=== PATIENT | male | born 1975 | race African-American/Black ===

== ENCOUNTER 2016-10-03 06:28 | Emergency (ER) | payer OTHER ==
[~2016-10-03] VITALS: Ht 188 cm; Wt 106.6 kg
[~2016-10-03 06:28] MED LIST: ACULAR5 ML LEFT EYE; AMOXICILLIN500 MG ORAL; AZITHROMYCIN250 MG ORAL; CIPROFLOXACIN500 M2 ORAL; DILANTIN100 MG ORAL; DOXYCYCLINE HY100 M2 PO; GUAIFENESI100 MG/5 M ORAL; IBUPROFEN600 MG ORAL; IBUPROFEN800 MG ORAL; KEFLEX500 MG ORAL; LORATADINE10 M1 PO; METOPROLOL SUCC25 MG ORAL; PEPCID20 MG ORAL; PREDNISONE20 MG ORAL; PRILOSEC20 MG ORAL; PROMETHAZINE-D118 ML ORAL; TESSALON PERLE100 MG ORAL
[2016-10-03 06:40] VITALS: BP 122/85
[2016-10-03] MEDS ORDERED: Albuterol ud Inhalation HHN ONE (07:00)
[2016-10-03 07:14] LABS: BASOPHILS % (AUTO) 1.7 % (0.0-2.0); EOSINOPHILS % (AUTO) 4.7 % (0.0-3.0); LYMPHOCYTES % (AUTO) 33.2 % (20.0-45.0); MEAN CORPUSCULAR HEMOGLOBIN 29.1 PG (27.0-31.0); MEAN CORPUSCULAR HGB CONC 32.1 G/DL (32.0-36.0); MEAN CORPUSCULAR VOLUME 90 FL (80-99); MEAN PLATELET VOLUME 5.8 FL (6.5-10.1); MONOCYTES % (AUTO) 9.9 % (1.0-10.0); NEUTROPHILS % (AUTO) 50.4 % (45.0-75.0); PLATELET COUNT 371 K/UL (150-450); RED BLOOD COUNT 5.03 M/UL (4.70-6.10); RED CELL DISTRIBUTION WIDTH 13.1 % (11.6-14.8); WHITE BLOOD COUNT 6.3 K/UL (4.8-10.8)
--- NOTE | 2016-10-03 07:16 | Emergency Room Report ---
History of Present Illness General Chief Complaint: Upper Respiratory Illness Source: Patient Present Illness HPI This patient presents complaining of cough for the past 2 weeks. The patient has a history of COPD. Patient states that he has had an ongoing cough for the past 2 weeks and over the past day he has developed blood in his sputum. He states that initially the blood was only streaky and it has become more significant. He has subjective fever a few days ago. No chills. He denies chest pain. He denies nausea or vomiting. He has no other complaints. Allergies: Coded Allergies: No Known Allergies (Verified , 06/16/09) Patient History Past Medical History: see triage record, HTN, asthma, COPD, GERD Social History: Denies: alcohol use, drug use, smoking - Hx of tobacco use x19 years. Reviewed Nursing Documentation: PMH: Agreed, PSxH: Agreed Nursing Documentation-PMH Past Medical History: No History, Except For Hx Cardiac Problems: No Hx Hypertension: Yes Hx Pacemaker: No Hx Asthma: Yes Hx COPD: Yes Hx Diabetes: No Hx Cancer: No Hx Gastrointestinal Problems: No Hx Dialysis: No Hx Neurological Problems: No Hx Cerebrovascular Accident: No Hx Seizures: No Review of Systems All Other Systems: negative except mentioned in HPI Physical Exam Vital Signs Date Time Temp Pulse Resp B/P Pulse Ox O2 Delivery O2 Flow Rate FiO2 10/03/16 06:34 98.1 73 19 122/85 96 Room Air Sp02 EP Interpretation: reviewed, normal General Appearance: no apparent distress, alert, GCS 15, non-toxic Head: normocephalic, atraumatic Eyes: bilateral eye PERRL, bilateral eye normal inspection ENT: hearing grossly normal, normal pharynx, no angioedema, normal voice Neck: full range of motion, supple/symm/no masses Respiratory: chest non-tender, lungs clear, normal breath sounds, speaking full sentences Cardiovascular #1: regular rate, rhythm, no edema Gastrointestinal: normal bowel sounds, non tender, soft, non-distended, no guarding, no rebound Rectal: deferred Musculoskeletal: back normal, gait/station normal, normal range of motion, non- tender Neurologic: alert, oriented x3, responsive, motor strength/tone normal, sensory intact, speech normal Psychiatric: judgement/insight normal, memory normal, mood/affect normal, no suicidal/homicidal ideation Skin: normal color, no rash, warm/dry, well hydrated Medical Decision Making Diagnostic Impression: Primary Impression: Pneumonia ER Course This patient presents with mild hemoptysis. Chest x-ray is borderline for possible right mid lung field opacity. Given the patient's history of 2 weeks of cough and increasing sputum production and a history of COPD, I will go ahead and treat with antibiotics for concern of pneumonia. The patient had no wheezing on exam, however, I did give the patient a breathing treatment. The evaluation was very reassuring with a normal lung exam, no respiratory distress , normal pulse oximetry. No emergency medical condition was identified. Patient was given close return precautions and followup instructions. Labs Test 10/03/16 06:55 White Blood Count 6.3 K/UL (4.8-10.8) Red Blood Count 5.03 M/UL (4.70-6.10) Hemoglobin 14.6 G/DL (14.2-18.0) Hematocrit 45.5 % (42.0-52.0) Mean Corpuscular Volume 90 FL (80-99) Mean Corpuscular Hemoglobin 29.1 PG (27.0-31.0) Mean Corpuscular Hemoglobin Concent 32.1 G/DL (32.0-36.0) Red Cell Distribution Width 13.1 % (11.6-14.8) Platelet Count 371 K/UL (150-450) Mean Platelet Volume 5.8 FL (6.5-10.1) Neutrophils (%) (Auto) 50.4 % (45.0-75.0) Lymphocytes (%) (Auto) 33.2 % (20.0-45.0) Monocytes (%) (Auto) 9.9 % (1.0-10.0) Eosinophils (%) (Auto) 4.7 % (0.0-3.0) Basophils (%) (Auto) 1.7 % (0.0-2.0) Sodium Level 143 mEQ/L (135-145) Potassium Level 5.0 mEQ/L (3.4-4.9) Chloride Level 101 mEQ/L (98-107) Carbon Dioxide Level 26 mEQ/L (20-30) Anion Gap 16 (5-15) Blood Urea Nitrogen 18 mg/dL (7-23) Creatinine 1.1 mg/dL (0.7-1.2) Estimat Glomerular Filtration Rate > 60 mL/min (>60) Glucose Level 111 mg/dL (74-106) Calcium Level 10.0 mg/dL (8.6-10.2) Total Bilirubin 0.3 mg/dL (0.0-1.2) Aspartate Amino Transf (AST/SGOT) 23 U/L (5-40) Alanine Aminotransferase (ALT/SGPT) 32 U/L (3-41) Alkaline Phosphatase 130 U/L (40-129) Total Protein 8.2 g/dL (6.6-8.7) Albumin 4.3 g/dL (3.5-5.2) Globulin 3.9 g/dL Albumin/Globulin Ratio 1.1 (1.0-2.7) Chest X-Ray Diagnostic Results EP Interpretation: Yes Findings: no effusion, no pneumothorax Number of Views: 1 Other Impression Subtle opacity R. mid lung field. Last Vital Signs Date Time Temp Pulse Resp B/P Pulse Ox O2 Delivery O2 Flow Rate FiO2 10/03/16 06:34 98.1 73 19 122/85 96 Room Air Disposition: HOME, SELF-CARE Condition: Improved Referrals: [facility]ERR[facility] (PCP) SMITA GARSIA D.O. Oct 03, 2016 07:16
[2016-10-03 07:25] LABS: ALANINE AMINOTRANSFERASE 32 U/L (3-41); ALBUMIN/GLOBULIN RATIO 1.1 (1.0-2.7); ANION GAP 16 (5-15); ASPARTATE AMINO TRANSFERASE 23 U/L (5-40); CARBON DIOXIDE 26 mEQ/L (20-30); CHLORIDE 101 mEQ/L (98-107); CREATININE 1.1 mg/dL (0.7-1.2); GLOMERULAR FILTRATION RATE > 60 mL/min (>60); HEMOLYSIS 1; SODIUM 143 mEQ/L (135-145); TOTAL PROTEIN 8.2 g/dL (6.6-8.7)
[2016-10-03] MEDS ORDERED: ZITHROMAX250 MG ORAL (08:32)
[2016-10-03] MEDS ORDERED: ALBUTEROL2.5 MG/3 M HHN (08:32)
[2016-10-03] MEDS ORDERED: PREDNISONE20 MG ORAL (08:32)
[2016-10-03 08:55] VITALS: BP 113/77
--- NOTE | 2016-10-03 10:10 | Diagnostic Imaging Report ---
Indication: COUGH Technique: One view of the chest Comparison: 05/03/2015 Findings: Lungs and pleural spaces are clear. Heart size is normal . No significant change Impression: No acute process
== END 2016-10-03 08:55 | disposition home or self-care (01) ==
LOC: EMR 06:53
DX: J18.9 Pneumonia, unspecified organism (principal); R04.2 Hemoptysis; I10 Essential (primary) hypertension; J44.9 Chronic obstructive pulmonary disease, unspecified
CPT/HCPCS: 36415; 71010; 80053; 85025; 94640; 94664; 99283

== ENCOUNTER 2016-10-10 07:51 | Emergency (ER) | payer OTHER ==
[~2016-10-10] VITALS: Ht 188 cm; Wt 108.0 kg
[~2016-10-10 07:51] MED LIST changes: +ALBUTEROL2.5 MG/3 M HHN; +ZITHROMAX250 MG ORAL
[2016-10-10 08:01] VITALS: BP 121/79
[2016-10-10] MEDS ORDERED: VENTOLIN HFA18 GM INH (08:20)
[2016-10-10] MEDS ORDERED: ACETAMINOPHEN-1 EAC1 ORAL (08:20)
[2016-10-10 08:25] VITALS: BP 121/79
--- NOTE | 2016-10-10 08:40 | Emergency Room Report ---
History of Present Illness General Chief Complaint: Upper Respiratory Illness Source: Patient Present Illness HPI 41YOM with continued cough for 1 month, now with "coughing up blood" after multiple episodes of dry cough, "trying to get the mucous up." Known COPD/ asthma. Denies associated chest pain, SOB, abd pain, fever/chills. Was seen here previously in last month for same. Was given Z-pack, states cough symptoms improved, no more fever/chills. Just concerned for hemoptysis. Allergies: Coded Allergies: No Known Allergies (Verified , 06/16/09) Patient History Past Medical History: COPD Past Surgical History: none Pertinent Family History: none Social History: Denies: alcohol use, drug use, smoking Immunizations: UTD Reviewed Nursing Documentation: PMH: Agreed, PSxH: Agreed Nursing Documentation-PMH Past Medical History: No History, Except For Hx Cardiac Problems: No Hx Hypertension: Yes Hx Pacemaker: No Hx Asthma: Yes Hx COPD: Yes Hx Diabetes: No Hx Cancer: No Hx Gastrointestinal Problems: No Hx Dialysis: No Hx Neurological Problems: No Hx Cerebrovascular Accident: No Hx Seizures: No Review of Systems All Other Systems: negative except mentioned in HPI Physical Exam Vital Signs Date Time Temp Pulse Resp B/P Pulse Ox O2 Delivery O2 Flow Rate FiO2 10/10/16 08:01 98.2 70 14 121/79 98 Room Air Sp02 EP Interpretation: reviewed, normal General Appearance: normal inspection, well appearing, no apparent distress, alert, GCS 15, non-toxic, other - Well appearing, not actively coughing Head: normocephalic, atraumatic Eyes: bilateral eye EOMI, bilateral eye PERRL ENT: normal ENT inspection, hearing grossly normal, normal voice Neck: normal inspection, full range of motion, supple, no bony tend Respiratory: normal inspection, lungs clear, normal breath sounds, no rhonchi, no respiratory distress, no retraction, no accessory muscle use, no wheezing, speaking full sentences Cardiovascular #1: regular rate, rhythm, no edema Gastrointestinal: normal inspection, normal bowel sounds, non tender, soft, no guarding, no hernia Genitourinary: no CVA tenderness Musculoskeletal: normal inspection, back normal, normal range of motion, Arron' s Sign negative Neurologic: normal inspection, alert, oriented x3, responsive, whip operator III-XII nml as tested, motor strength/tone normal, speech normal Psychiatric: normal inspection, judgement/insight normal, mood/affect normal Skin: normal inspection Medical Decision Making Diagnostic Impression: Primary Impression: Hemoptysis ER Course 41YOM with hemoptysis in setting of 1 month of cough. VSS. Afebrile. Looks well, no systemic illness lungs CTAB. Not in COPD exacerbation Using albuterol at home PRN cough with improvement No active coughing or hemoptysis in ED Likely related to forcing up the mucous, upper airway irritation Refilled Albuterol, Rx T#3 PMD followup DC home Last Vital Signs Date Time Temp Pulse Resp B/P Pulse Ox O2 Delivery O2 Flow Rate FiO2 10/10/16 08:01 98.2 70 14 121/79 98 Room Air Status: improved Disposition: HOME, SELF-CARE Condition: Improved Scripts Acetaminophen With Codeine (T#3) (TYLENOL #3 TAB*) Y Tab 1 TAB ORAL Q8H Y for For Cough, #20 TAB Prov: BARBARA VILLATORO M.D. 10/10/16 Albuterol Sulfate (VENTOLIN HFA) 18 Gm Hfa.aer.ad 1 PUFF INH EVERY 6 HOURS for For Cough, #18 GM 0 Refills Prov: BARBARA VILLATORO M.D. 10/10/16 Referrals: [facility]ERR[facility] (PCP) Patient Instructions: Upper Respiratory Infection, Adult, Hemoptysis, Easy-to- Read Additional Instructions: - Continue using albuterol pump as needed for cough, shortness of breath, wheezing - Use Tylenol #3 at night or when you're home for cough, chest pain - Follow up with your primary care doctor in 1 week BARBARA VILLATORO M.D. Oct 10, 2016 08:40
== END 2016-10-10 08:25 | disposition home or self-care (01) ==
LOC: EMR 08:18
DX: R04.2 Hemoptysis (principal); J44.9 Chronic obstructive pulmonary disease, unspecified; J45.909 Unspecified asthma, uncomplicated; I10 Essential (primary) hypertension
CPT/HCPCS: 99284

== ENCOUNTER 2018-06-13 09:59 | Emergency (ER) | payer OTHER ==
[~2018-06-13] VITALS: Ht 182.9 cm; Wt 95.3 kg
[~2018-06-13 09:59] MED LIST changes: +ACETAMINOPHEN-1 EAC1 ORAL; +VENTOLIN HFA18 GM INH
[2018-06-13] MEDS ORDERED: Acetaminophen 500mg (ES) tab ORAL ONE (10:30)
[2018-06-13] MEDS ORDERED: Albuterol ud Inhalation HHN ONE (10:30)
--- NOTE | 2018-06-13 10:37 | Emergency Room Report ---
History of Present Illness General Chief Complaint: Flu Like Symptoms Source: Patient Present Illness HPI 42-year-old male with a history of asthma and hypertension comes ER with complaints of 4 days of fever, chills, body aches, nausea, headache, cough with clear sputum production. Has wheezing, shortness of breath, syncope, urinary complaints, abdominal pain, does report loose stools but no bloody stools, no vomiting, no other symptoms. He reports partial relief with ibuprofen. Allergies: Coded Allergies: No Known Allergies (Verified , 06/13/18) Patient History Past Medical History: see triage record Reviewed Nursing Documentation: PMH: Agreed; PSxH: Agreed Nursing Documentation-PMH Past Medical History: No History, Except For Hx Cardiac Problems: No Hx Hypertension: Yes Hx Pacemaker: No Hx Asthma: Yes Hx COPD: Yes Hx Diabetes: No Hx Cancer: No Hx Gastrointestinal Problems: No Hx Dialysis: No Hx Neurological Problems: No Hx Cerebrovascular Accident: No Hx Seizures: No Review of Systems All Other Systems: negative except mentioned in HPI Physical Exam Vital Signs Date Time Temp Pulse Resp B/P (MAP) Pulse Ox O2 Delivery O2 Flow Rate FiO2 06/13/18 10:05 101.1 85 16 108/72 96 Room Air 06/13/18 10:27 21 Sp02 EP Interpretation: reviewed, normal General Appearance: alert, non-toxic, mild distress Head: normocephalic Eyes: bilateral eye normal inspection, bilateral eye PERRL, bilateral eye EOMI , bilateral eye Scleral Injection ENT: normal ENT inspection, hearing grossly normal, normal pharynx, no angioedema, normal voice, moist mucus membranes Neck: normal inspection, full range of motion, supple, thyroid normal, no meningismus, supple/symm/no masses Respiratory: chest non-tender, lungs clear, normal breath sounds, no rhonchi, no respiratory distress, no retraction, no accessory muscle use, no wheezing, chest symmetrical, palpation of chest normal Cardiovascular #1: normal peripheral pulses, regular rate, rhythm Cardiovascular #2: 2+ radial (R), 2+ radial (L) Gastrointestinal: normal inspection, non tender, soft, no mass, no guarding, no rebound Rectal: deferred Genitourinary: normal inspection, no CVA tenderness Musculoskeletal: back normal, gait/station normal, normal range of motion, non- tender, no calf tenderness, Arron's Sign negative Neurologic: alert, responsive, cereal popper III-XII nml as tested, motor strength/tone normal, sensory intact, speech normal Psychiatric: judgement/insight normal, memory normal, mood/affect normal Skin: normal color, no rash, warm/dry, normal turgor Lymphatic: no adenopathy Medical Decision Making Diagnostic Impression: Primary Impression: Influenza-like symptoms ER Course Patient with influenza-like illness, will give Tamiflu, recommend Tylenol and ibuprofen, albuterol inhaler, follow-up with PMD, infectious precautions. Diagnosis influenza. Chest X-Ray Diagnostic Results Chest X-Ray Diagnostic Results : Chest X-Ray Ordered: Yes # of Views/Limited/Complete: 1 View Indication: Other - fever, cough EP Interpretation: Yes Interpretation: no consolidation, no effusion, no pneumothorax, no acute cardiopulmonary disease Impression: No acute disease Electronically Signed by: Evelyn Thayer MD Last Vital Signs Date Time Temp Pulse Resp B/P (MAP) Pulse Ox O2 Delivery O2 Flow Rate FiO2 06/13/18 10:31 21 06/13/18 10:27 87 18 98 Room Air 06/13/18 10:05 101.1 108/72 Disposition: HOME, SELF-CARE Condition: Stable Referrals: NON PHYSICIAN (PCP) EVELYN THAYER M.D Jun 13, 2018 10:37
[2018-06-13] MEDS ORDERED: ALBUTEROL SULF8.5 GM INH (10:55)
[2018-06-13] MEDS ORDERED: TAMIFLU75 MG ORAL (10:55)
[2018-06-13] MEDS ORDERED: Ketorolac 60mg Inj IM ONE (11:00)
[2018-06-13] MEDS ORDERED: Oseltamivir 75mg cap ORAL ONE (11:07)
--- NOTE | 2018-06-13 11:17 | Diagnostic Imaging Report ---
Indication: Cough Technique: One view of the chest Comparison: For 06/12/2017 Findings: Lungs and pleural spaces are clear. Heart size is normal . No significant interim change Impression: No acute process
[2018-06-13 11:33] VITALS: BP 110/72
[2018-06-13 11:34] VITALS: BP 110/72
[2018-06-13] MEDS ORDERED: Oseltamivir 75mg cap ORAL SCH (18:00)
== END 2018-06-13 11:36 | disposition home or self-care (01) ==
LOC: EMR 10:20
DX: J11.1 Influenza due to unidentified influenza virus with other respiratory manifestations (principal); I10 Essential (primary) hypertension; J44.9 Chronic obstructive pulmonary disease, unspecified
CPT/HCPCS: 71045; 94640; 96372; 99283